=== PATIENT | female | born 1940 | race Caucasian/White ===

== ENCOUNTER → 2018-05-01 | Outpatient (CLI) | payer MEDICARE, OTHER ==
--- NOTE | 2018-05-01 16:09 | 2DMMODE ---
[place] [address] 2 D/M-MODE ECHOCARDIOGRAM Name: PERNELL,CHRISTOPHE G Room: [facility]#: [id number] Admission: 05/01/18 Attend Phys: Constance Adams MD Discharge: Date of : 40 Date of Service: 05/01/18 1609 Report #: [id number] THIS REPORT FOR: //name// APPROVED REPORT Study performed: 05/01/2018 14:26:02 EXAM: Comprehensive 2D, Doppler, and color-flow Echocardiogram Patient Location: Out-Patient Status: routine BSA: 1.86 HR: 85 bpm BP: 130/70 mmHg Other Information Study Quality: Fair Indications Pre-Op 2D Dimensions IVSd: 11.33 (7-11mm) LVOT Diam: 20.59 (18-24mm) LVDd: 43.10 mm PWd: 10.87 (7-11mm) Ascending Ao: 28.50 (22-36mm) LVDs: 25.62 (25-40mm) Aortic Root: 23.28 mm Volumes Left Atrial Volume (Systole) LA ESV Index: 14.70 mL/m2 Aortic Valve AoV Peak Nagi.: 1.34 m/s AO Peak Gr.: 7.16 mmHg LVOT Max P.07 mmHg AO Mean Gr.: 3.84 mmHg LVOT Mean P.82 mmHg LVOT Max V: 1.01 m/s AO V2 VTI: 25.01 cm LVOT Mean V: 0.61 m/s MARILEE (VTI): 2.63 cm2 LVOT V1 VTI: 19.75 cm Mitral Valve E/A Ratio: 0.67 MV Decel. Time: 256.92 ms MV E Max Nagi.: 0.45 m/s MV PHT: 74[place] [address] 2 D/M-MODE ECHOCARDIOGRAM Name: PERNELLCHRISTOPHE G Room: [facility]#: [id number] Admission: 05/01/18 Attend Phys: Constance Adams MD Discharge: Date of : 40 Date of Service: 05/01/18 1609 Report #: [id number] MVA (PHT): 2.95 cm2 TDI E/Lateral E': 7.50 E/Medial E': 7.50 Medial E' Nagi.: 0.06 m/s Lateral E' Nagi.: 0.06 m/s Pulmonary Valve PV Peak Nagi.: 0.78 m/s PV Peak Gr.: 2.45 mmHg Left Ventricle The left ventricle is normal size. There is normal LV segmental wall motion. There is normal left ventricular wall thickness. Left ventricular systolic function is normal. The left ventricular ejection fraction is within the normal range. LVEF is 60-65%. Grade I - abnormal relaxation pattern. Right Ventricle The right ventricle is normal size. The right ventricular systolic function is normal. Atria The left atrium size is normal. The right atrium size is normal. Aortic Valve Aortic valve is mildly calcified. No aortic regurgitation is present. There is no aortic valvular stenosis. Mitral Valve The mitral valve is normal in structure. There is no mitral valve regurgitation noted. No evidence of mitral valve stenosis. Tricuspid Valve The tricuspid valve is normal in structure. Trace tricuspid regurgitation. Pulmonic Valve The pulmonary valve is normal in structure. Mild pulmonic regurgitation. Great Vessels The aortic root is normal in size. IVC is normal in size and collapses >50% with [place] [address] 2 D/M-MODE ECHOCARDIOGRAM Name: PERNELLARMANI SANDOVALRIKY Mcdaniel Room: [facility]#: [id number] Admission: 05/01/18 Attend Phys: Constance Adams MD Discharge: Date of : 40 Date of Service: 05/01/18 1609 Report #: [id number] There is no pericardial effusion. <Conclusion> Left ventricular systolic function is normal. The left ventricular ejection fraction is within the normal range. <ELECTRONICALLY SIGNED> By: Josesito Harman MD, [facility] 05/01/18 1609 1609 1609 Josesito Harman MD, [facility] /INF
== END ==
LOC: M.CRD 14:00
DX: Z01.818 Encounter for other preprocedural examination (principal); I37.1 Nonrheumatic pulmonary valve insufficiency; I35.8 Other nonrheumatic aortic valve disorders